=== PATIENT | female | born 1985 | race American Indian/Alaskan Native ===

== ENCOUNTER 2019-07-08 12:20 | Emergency (ER) | payer OTHER ==
[2019-07-08 12:28] VITALS: BP 124/78
--- NOTE | 2019-07-08 13:06 | Event Note ---
ED Screening Note ED Screening Note: This initial assessment/diagnostic orders/clinical plan/treatment(s) is/are subject to change based on patients health status, clinical progression and re- assessment by fellow clinical providers in the ED. Further treatment and workup at subsequent clinical providers discretion. Patient/guardian urged not to elope from the ED as their condition may be serious if not clinically assessed and managed. Initial orders include: 33yo female states that she cut her R third finger while hedge cutting about an hour ago.
[2019-07-08] MEDS ORDERED: LIDOCAINE (1%) 10 MG/1 ML VIAL 20 ML MDV INFILTRATI ONE (13:10)
[2019-07-08] MEDS ORDERED: SODIUM CHLORIDE 0.9% IRR 500 ML BOTTLE IR ONE (13:10)
[2019-07-08] MEDS ORDERED: IBUPROFEN 600 MG TAB PO ONE (13:10)
[2019-07-08] MEDS ORDERED: NEOMY 3.5 MG/BACIT 400 UNITS/POLY B 5000 UNITS/GM OINT PACKET TP ONE (13:10)
--- NOTE | 2019-07-08 13:10 | Emergency Department Report ---
ED Laceration HPI - HPI Chief Complaint: Extremity Injury, Upper Stated Complaint: CUT FINGER Time Seen by Provider: 07/08/19 13:09 Occurred When: Today Location: Upper Extremity Severity: mild Tetanus Status: Not up to Date Laceration Symptoms: Yes Pain, No Foreign Body Sensation, No Numbness, No Weakness Other History: 33 YO AA FEMALE COMES IN WITH CUT ON L FINGER; FROM [employer]. THERE IS NAIL DAMAGE WITH NO SUBUNGAL. BLEEDING CONTROLLED ED Review of Systems ROS: Stated complaint: CUT FINGER Other details as noted in HPI Comment: All other systems reviewed and negative ED Past Medical Hx - Past Medical History Previous Medical History?: No - Surgical History Past Surgical History?: No - Family History Family history: no significant - Social History Smoking Status: Never Smoker Substance Use Type: None - Medications Home Medications: Home Medications Medication Instructions Recorded Confirmed Last Taken Type Ibuprofen [Motrin] 800 mg PO Q8HR PRN #30 tablet 07/08/19 Unknown Rx cephALEXin [Keflex] 500 mg PO Q12HR #14 cap 07/08/19 Unknown Rx Laceration Physical Exam - Exam General: Vital signs noted. No distress. Alert and acting appropriately. Laceration Location: Upper Extremity Laceration Exam: Yes Normal Distal CMS, No Foreign Body, No Exposed Tendon, Vessel, or Nerve, No Tendon Injury ED Course Vital Signs 07/08/19 12:26 Temperature 97.9 F Pulse Rate 86 Respiratory 16 Rate Blood Pressure 124/78 [Right] O2 Sat by Pulse 97 Oximetry - Laceration /Wound Repair L FINGER Wound Location: upper extremity Irrigated w/ Saline (ccs): 1 Betadine Prep?: Yes Volume Anesthetic (ccs): 3 (MARCAINE) Wound Debrided: minimal Wound Repaired With: sutures Suture Size/Type: 4:0 Number of Sutures: 3 Layer Closure?: No Sterile Dressing Applied?: Yes Progress: TOLERATED WELL - Nerve Block Consent Obtained: verbal consent Time Out Performed: Yes Local Anesthetic Used: Marcaine 0.25% Amount of anesthesia used: 3 Side: left Nerve Blocks: digital Procedure Successful: Yes Complications: none Patient Tolerated Procedure: well ED Medical Decision Making - Medical Decision Making LAC CLEANED AND REPAIRED FULL ROM NEUROVASC INTACT NAIL BROKEN FROM MID NAIL BED- REMOVED WITHOUT DIFFICULTY DRESSING APPLIED WOUND CARE INSTRUCTIONS GIVEN MEDICATED FOR PAIN DC HOME WITH DC PLAN OF CARE Vital Signs 07/08/19 12:26 Temperature 97.9 F Pulse Rate 86 Respiratory 16 Rate Blood Pressure 124/78 [Right] O2 Sat by Pulse 97 Oximetry - Differential Diagnosis SIMPLE LAC Critical care attestation.: If time is entered above; I have spent that time in minutes in the direct care of this critically ill patient, excluding procedure time. ED Disposition Clinical Impression: Laceration, Nail bed injury Disposition: DC-01 TO HOME OR SELFCARE Is pt being admited?: No Does the pt Need Aspirin: No Condition: Stable Instructions: Suture Care (ED), Laceration (ED) Additional Instructions: wound care as we discussed motrin or tylenol for pain antibiotic to prevent infection Prescriptions: cephALEXin [Keflex] 500 mg PO Q12HR #14 cap Ibuprofen [Motrin] 800 mg PO Q8HR PRN #30 tablet PRN Reason: Pain, Moderate (4-6) Referrals: PRIMARY CARE, [Primary Care Provider] - 3-5 Days Time of Disposition: 13:51
[2019-07-08] MEDS ORDERED: BUPIVACAINE/PF (0.25%) 2.5 MG/ML 30 ML VIAL INFILTRATI ONE (13:11)
[2019-07-08] MEDS ORDERED: TETANUS,DIPH,PERTUSS(ACELL) VACCINE 0.5 ML SYRINGE IM ONE (13:14)
[2019-07-08] MEDS ORDERED: BUPIVACAINE/PF (0.5%) 5 MG/1 ML 30 ML VIAL INFILTRATI ONE (13:17)
[2019-07-08] MEDS ORDERED: BUPIVACAINE/PF (0.25%) 2.5 MG/ML 10 ML VIAL INFILTRATI ONE (13:30)
== END 2019-07-08 14:18 | disposition home or self-care (01) ==
LOC: ED 12:20
DX: S61.313A Laceration without foreign body of left middle finger with damage to nail, initial encounter (principal); W45.8XXA Other foreign body or object entering through skin, initial encounter; Y93.89 Activity, other specified; Y92.89 Other specified places as the place of occurrence of the external cause; Y99.8 Other external cause status
CPT/HCPCS: 90471; 90715; 99282; A6250